=== PATIENT | male | born 1980 | race Asian ===

== ENCOUNTER 2017-01-28 17:21 | Inpatient (IN) | payer OTHER ==
[~2017-01-28] VITALS: Ht 162.6 cm; Wt 64.5 kg
--- NOTE | ~2017-01-28 | HC ---
[facility] [place] [address] CONSULTATION Name: LY PATEL Room #: 453-P ADM IN M.R.#: [id number] Admission: 01/28/17 Attend Phys: Konrad Ni DO Discharge: Date of : 84 Report #: [id number] THIS REPORT FOR: //name// CC: [facility] physician/PCP Konrad Ni DATE OF SERVICE: 01/29/2017 REASON FOR CONSULTATION: Depression, anxiety, alcohol use disorder. HISTORY OF PRESENT ILLNESS: This is a gentleman with a long history of anxiety and alcohol use disorder. It appears he has become more depressed lately and faced with many psychosocial stressors. "I have lost everything." He feels hopeless and helpless at times, but there is not any active suicidal thinking. The patient presented with blood alcohol level greater than 300. He notes he has trouble with sleep and trouble with anxiety. PAST PSYCHIATRIC HISTORY: The patient notes he has tried to see physicians before to get something for anxiety, but "nobody will give me anything." His mother has given him low doses of Seroquel in the past to sleep. Denies any history of suicide attempts. FAMILY HISTORY: Depression, anxiety, and alcoholism in his brother who I believe may have committed suicide. PAST MEDICAL HISTORY: Due to alcohol use disorder, includes history of withdrawal seizures. CURRENT MEDICATIONS: None. ALLERGIES: No known drug allergies. SOCIAL HISTORY: He moved here from [place]. He is undomiciled at this time. He was supposed to have had a job, but it did not work out. Appears he has lost jobs and relationships in the past due to alcohol use disorder. MENTAL STATUS EXAMINATION: Ectomorphic build male, fair grooming and hygiene, depressed, anxious, mildly diaphoretic, minimal tremor at rest, normal rate, rhythm of speech. His speech is articulate. No suicidal ideation, no homicidal ideation, no hallucinations, no delusions. Insight and judgment fair. DIAGNOSES: AXIS I: Alcohol use disorder, generalized anxiety disorder. AXIS II: Deferred. AXIS III: Secondary to alcohol use disorder. AXIS IV: Severe. [facility] [address] [place] [address] CONSULTATION Name: AMANDABRAYDONRadhika Room #: 453-P [facility] [place] ..#: [id number] Admission: 01/28/17 Attend Phys: Konrad Ni DO Discharge: Date of : 84 Report #: [id number] AXIS V: 40. RECOMMENDATIONS: We will start on gabapentin to help with anxiety and with withdrawal. I have added some scheduled Ativan because of history of complex withdrawal that included seizures. I will also look at scheduled Ativan and seizure precautions. We will add in low dose Seroquel a few days. If he is having trouble sleeping, may also consider antidepressants like Prozac. Hopefully he will utilize some of the references and resources given to him by case management. By: [id number] Jv Herrera MD /alexandra
[2017-01-28 17:22] VITALS: BP 140/108
[2017-01-28 17:39] LABS: ABSOLUTE NEUTROPHILS 3.5 thou/uL (1.4-8.2); BASOPHILS 0.7 % (0.0-2.0); EOSINOPHILS 0.9 % (0.0-3.0); HEMATOCRIT 44.3 % (42.0-52.0); HEMOGLOBIN 15.5 gm/dL (14.0-18.0); LYMPHOCYTES 39.1 % (24.0-44.0); MCH 33.6 pg (26.0-34.0); MCHC 35.1 g/dL (28.0-37.0); MCV 95.8 fL (80.0-100.0); MONOCYTES 7.4 % (1.0-8.0); PLATELET COUNT 152 thou/uL (150-400); POLYS 51.9 % (36.0-66.0); RBC 4.62 mil/uL (4.50-6.00); RDW 14.6 % (10.5-14.5); WBC 6.8 thou/uL (4.0-11.0)
[2017-01-28 17:41] LABS: MANUAL DIFF NO
[2017-01-28 17:50] LABS: CREATININE 0.6 mg/dL (0.7-1.3); POTASSIUM 3.5 mmol/L (3.5-5.1)
[2017-01-28 17:57] LABS: ALBUMIN 3.4 g/dL (3.4-5.0); TOTAL BILIRUBIN 0.3 mg/dL (<0.1-1.0); TOTAL PROTEIN 7.8 g/dL (6.4-8.2)
[2017-01-28 18:02] LABS: SALICYLATE 2.9 mg/dL (2.8-20.0)
[2017-01-28 18:07] LABS: ACETAMINOPHEN < 2 ug/mL (10-30)
[2017-01-28 18:40] LABS: URINE BILIRUBIN NEGATIVE (Negative); URINE BLOOD NEGATIVE (Negative); URINE COLOR YELLOW; URINE GLUCOSE-RANDOM* NEGATIVE (Negative); URINE KETONES NEGATIVE (Negative); URINE LEUKOCYTES-REFLEX NEGATIVE (Negative); URINE PROTEIN (DIPSTICK) NEGATIVE (Negative); URINE SPECIFIC GRAVITY <= 1.005 (1.003-1.035); URINE UROBILINOGEN 0.2 E.U./dl (0.2-1.0)
[2017-01-28 18:47] LABS: AMP/METHAMP Negative (Negative); BARBITURATES Negative (Negative); BENZODIAZEPINES Negative (Negative); COCAINE Negative (Negative); METHADONE Negative (Negative); OPIATES Negative (Negative); PCP Negative (Negative); THC Negative (Negative)
[2017-01-28 20:57] VITALS: BP 114/84
[2017-01-29 05:12] VITALS: BP 124/87
[2017-01-29 06:35] LABS: HEMATOCRIT 41.2 % (42.0-52.0); HEMOGLOBIN 14.3 gm/dL (14.0-18.0); MCH 33.5 pg (26.0-34.0); MCHC 34.7 g/dL (28.0-37.0); MCV 96.5 fL (80.0-100.0); RBC 4.27 mil/uL (4.50-6.00); RDW 14.7 % (10.5-14.5); WBC 4.9 thou/uL (4.0-11.0)
[2017-01-29 06:38] LABS: CALCIUM 7.9 mg/dL (8.5-10.1); CREATININE 0.6 mg/dL (0.7-1.3); POTASSIUM 3.2 mmol/L (3.5-5.1)
[2017-01-29 07:24] VITALS: BP 143/94
[2017-01-29 11:50] VITALS: BP 133/76
[2017-01-29 16:11] VITALS: BP 139/88
[2017-01-29 19:06] VITALS: BP 130/72
[2017-01-30] VITALS (7 sets, daily range): BP systolic 118–139; BP diastolic 74–97
[2017-01-30 10:24] LABS: MAGNESIUM 1.3 mg/dL (1.8-2.4); POTASSIUM 3.8 mmol/L (3.5-5.1)
[2017-01-31 03:50] VITALS: BP 121/77
[2017-01-31 07:25] VITALS: BP 134/87
[2017-01-31 11:30] VITALS: BP 142/98
[2017-01-31 15:16] VITALS: BP 137/92
[2017-01-31 18:59] VITALS: BP 144/91
[2017-02-01 04:04] VITALS: BP 105/67
[2017-02-01 07:12] LABS: ALBUMIN 3.4 g/dL (3.4-5.0); CALCIUM 9.2 mg/dL (8.5-10.1); CREATININE 0.7 mg/dL (0.7-1.3); POTASSIUM 4.3 mmol/L (3.5-5.1); TOTAL BILIRUBIN 0.7 mg/dL (<0.1-1.0); TOTAL PROTEIN 7.7 g/dL (6.4-8.2)
[2017-02-01 08:32] VITALS: BP 119/77
[2017-02-01 09:47] VITALS: BP 119/77
== END 2017-02-01 10:16 | disposition home or self-care (01) | DRG 896 ==
LOC: ER 17:21 → 4W 19:26 → EROBS 19:26 → 4W 20:23
PROVIDERS: Family Medicine; Internal Medicine Endocrinology, Diabetes & Metabolism; Nurse Practitioner; Physician Assistant
DX: F10.239 Alcohol dependence with withdrawal, unspecified (principal); J69.0 Pneumonitis due to inhalation of food and vomit; E43 Unspecified severe protein-calorie malnutrition; G47.00 Insomnia, unspecified; F41.1 Generalized anxiety disorder; E83.42 Hypomagnesemia; F17.210 Nicotine dependence, cigarettes, uncomplicated; F32.9 Major depressive disorder, single episode, unspecified; F19.10 Other psychoactive substance abuse, uncomplicated; Y90.0 Blood alcohol level of less than 20 mg/100 ml; Z87.01 Personal history of pneumonia (recurrent); Z71.6 Tobacco abuse counseling; Z68.24 Body mass index [BMI] 24.0-24.9, adult; Z81.1 Family history of alcohol abuse and dependence; Z81.8 Family history of other mental and behavioral disorders
CPT/HCPCS: 10045

== ENCOUNTER 2017-03-04 13:55 | Emergency (ER) | payer OTHER ==
[~2017-03-04] VITALS: Ht 167.6 cm; Wt 68.0 kg
[2017-03-04] MEDS ORDERED: ATIVAN0.5 MG PO (14:13)
[2017-03-04] MEDS ORDERED: SLEEP AIDE (14:13)
== END 2017-03-04 15:33 | disposition home or self-care (01) ==
LOC: ER 13:55
DX: S61.212A Laceration without foreign body of right middle finger without damage to nail, initial encounter (principal); F32.9 Major depressive disorder, single episode, unspecified; F41.9 Anxiety disorder, unspecified; F90.9 Attention-deficit hyperactivity disorder, unspecified type; F17.210 Nicotine dependence, cigarettes, uncomplicated; F10.99 Alcohol use, unspecified with unspecified alcohol-induced disorder; F15.90 Other stimulant use, unspecified, uncomplicated; W26.0XXA Contact with knife, initial encounter; Y93.89 Activity, other specified; Y92.89 Other specified places as the place of occurrence of the external cause; Y99.8 Other external cause status

== ENCOUNTER 2017-03-20 01:04 | Emergency (ER) | payer OTHER ==
[~2017-03-20] VITALS: Ht 167.6 cm; Wt 68.0 kg
[~2017-03-20 01:04] MED LIST: ATIVAN0.5 MG PO; SLEEP AIDE
[2017-03-20] MEDS ORDERED: KEFLEX500 MG PO (01:25)
== END 2017-03-20 03:06 | disposition home or self-care (01) ==
LOC: ER 01:04
DX: S83.92XA Sprain of unspecified site of left knee, initial encounter (principal); S61.212D Laceration without foreign body of right middle finger without damage to nail, subsequent encounter; F90.9 Attention-deficit hyperactivity disorder, unspecified type; F32.9 Major depressive disorder, single episode, unspecified; F41.9 Anxiety disorder, unspecified; F17.210 Nicotine dependence, cigarettes, uncomplicated; F10.99 Alcohol use, unspecified with unspecified alcohol-induced disorder; W50.0XXA Accidental hit or strike by another person, initial encounter; Y93.66 Activity, soccer; Y92.89 Other specified places as the place of occurrence of the external cause; Y99.8 Other external cause status